=== PATIENT | male | born 1995 | race Caucasian/White ===

== ENCOUNTER 2020-01-06 | Emergency (ER) | payer OTHER, SELFPAY ==
[2020-01-06] MEDS ORDERED: BUPIVACAINE LIPOSOME/PF 1.3% 20ML VIAL (13.3MG/ML)(EXPAREL)(C9290 PER1MG) ONE (00:01)
[2020-01-07] MEDS ORDERED: ceFAZolin 1GM VIAL (J0690 PER 500MG) As Ordered ONE (00:31)
[2020-01-07] MEDS ORDERED: ISOVUE-370 76% 100ML VIAL ONE (00:31)
[2020-01-07] MEDS ORDERED: LIDOCAINE W/EPINEPHRINE 1% 20ML VIAL ONE (03:41)
[2020-02-23 11:31] LABS: INR 0.93; PROTHROMBIN TIME 12.6 SECONDS (12.5-14.3)
[2020-02-23 17:17] LABS: HEMATOCRIT 37.9 % (42.0-52.0); HEMOGLOBIN 13.4 g/dl (13.5-17.5); MEAN CORPUSCULAR HGB CONC 35.4 g/dl (32.0-36.5); MEAN CORPUSCULAR VOLUME 90.5 fl (80.0-96.0); PLATELET COUNT, AUTOMATED 180 10^3/uL (150-450); RED BLOOD COUNT 4.19 10^6/uL (4.30-6.10); WHITE BLOOD COUNT 11.9 10^3/uL (4.0-10.0)
[2020-03-27 20:27] LABS: ALT/SGPT 109 U/L (12-78); BILIRUBIN,TOTAL 0.3 MG/DL (0.2-1.0); BLOOD UREA NITROGEN 14 MG/DL (7-18); CALCIUM LEVEL 8.6 MG/DL (8.5-10.1); CARBON DIOXIDE LEVEL 26 MEQ/L (21-32); CHLORIDE LEVEL 111 MEQ/L (98-107); CREATININE FOR GFR 1.01 MG/DL (0.70-1.30); GLOMERULAR FILTRATION RATE > 60.0 (>60); GLUCOSE, FASTING 131 MG/DL (70-100); POTASSIUM SERUM 4.1 MEQ/L (3.5-5.1); SODIUM LEVEL 142 MEQ/L (136-145); TOTAL PROTEIN 7.1 GM/DL (6.4-8.2)
== END 2020-01-07 05:30 | disposition home or self-care (01) ==
LOC: M ED
DX: S01.311A Laceration without foreign body of right ear, initial encounter (principal); S51.811A Laceration without foreign body of right forearm, initial encounter; V49.50XA Passenger injured in collision with unspecified motor vehicles in traffic accident, initial encounter; R22.2 Localized swelling, mass and lump, trunk; F10.120 Alcohol abuse with intoxication, uncomplicated
CPT/HCPCS: 12002; 12014; 36415; 70450; 70486; 71260; 72125; 74177; 80053; 85027; 85610; 99284; C9290; G0480; J0690; Q9967

== ENCOUNTER 2024-09-07 18:51 | Emergency (ER) | payer OTHER ==
[~2024-09-07] VITALS: Ht 180.3 cm; Wt 98.2 kg
[2024-09-07 18:52] VITALS: BP 176/102; TEMP 97.1; O2SAT 97
[2024-09-07] MEDS: LIDOCAINE 2% MDV 20ML VIAL SC ONE (19:35)
[2024-09-07] MEDS: BOOSTRIX VACCINE (TETANUS/DIPHTH/ACEL. PERTUSSIS) 0.5ML SYR IM.IMMUN ONE (20:01)
[2024-09-07] MEDS: NEOSPORIN OINT 0.9 GM PKT TOP ONE (20:13)
== END 2024-09-07 20:28 | disposition home or self-care (01) ==
LOC: M ED 18:51
DX: S61.012A Laceration without foreign body of left thumb without damage to nail, initial encounter (principal); Y92.9 Unspecified place or not applicable; Y93.9 Activity, unspecified; Y99.0 Civilian activity done for income or pay; Z23 Encounter for immunization